=== PATIENT | male | born 1950 | race Caucasian/White ===

== ENCOUNTER 2023-03-28 19:06 | Emergency (ER) | payer MEDICARE, OTHER ==
[2023-03-28] MEDS ORDERED: Sodium Chloride 0.9% 1,000 ML IV SCH (20:15)
[2023-03-28] MEDS ORDERED: Iopamidol 612 MG/ML 100 ML Bottle ONE (21:32)
[2023-03-28] MEDS ORDERED: Ibuprofen 600 MG Tab PO ONE (22:33)
== END 2023-03-28 22:54 | disposition home or self-care (01) ==
LOC: MERGE 19:06 → JD.ED 19:06
DX: S22.42XA Multiple fractures of ribs, left side, initial encounter for closed fracture (principal); S28.0XXA Crushed chest, initial encounter; F17.200 Nicotine dependence, unspecified, uncomplicated; Z88.8 Allergy status to other drugs, medicaments and biological substances; W55.22XA Struck by cow, initial encounter
CPT/HCPCS: 71260; 74177; 99283; A9270; J7030; Q9967